=== PATIENT | male | born 1970 | race Caucasian/White ===

== ENCOUNTER 2024-05-18 09:48 | Day surgery (SDC) | payer OTHER ==
[2024-05-10 14:19] VITALS: BP 135/70
[~2024-05-18] VITALS: Ht 162.6 cm; Wt 87.1 kg
[~2024-05-18 09:48] MED LIST: LOSARTAN; METFORMIN HCL500 M3; TAMS0.4C
[2024-05-18] MEDS ORDERED: MIRALAX17 GM PO (11:15)
[2024-05-18] MEDS ORDERED: TYLENOL ARTHRI650 MG PO (11:15)
[2024-05-18] MEDS ORDERED: KETO10TA2 PO (11:15)
[2024-05-18] MEDS ORDERED: TRAMADOL HCL50 MG PO (11:15)
[2024-05-18] MEDS ORDERED: CEFAZOLIN SODIUM 1,000 MG VIAL IV ONE (12:45)
[2024-05-18] MEDS ORDERED: BUPIVACAINE HCL 30 ML VIAL IJ ONE (12:45)
[2024-05-18] MEDS ORDERED: LIDOCAINE HCL 1%/EPINEPHRINE 20ML VIAL IJ ONE (12:45)
[2024-05-18] MEDS ORDERED: MORPHINE SULFATE 4 MG/ML VIAL IV ONE ×2 (14:10→14:40)
== END 2024-05-18 17:00 | disposition home or self-care (01) ==
LOC: CIR.AMB 09:48
PROVIDERS: ATTEND Surgery
DX: K42.0 Umbilical hernia with obstruction, without gangrene (principal); E11.9 Type 2 diabetes mellitus without complications; Z88.1 Allergy status to other antibiotic agents; Z91.013 Allergy to seafood
CPT/HCPCS: 49594; C1781